=== PATIENT | female | born 1950 | race Caucasian/White ===

== ENCOUNTER 2016-11-23 21:09 | Emergency (ER) | payer MEDICARE ==
[~2016-11-23] VITALS: Ht 162.6 cm; Wt 113.4 kg
[~2016-11-23 21:09] MED LIST: HYDR-971 PO; OM-31CAP7 PO; ONDA4TAB10 PO; [UNRECOGNIZED DRUG - OTHER] PO
[2016-11-23 21:15] VITALS: BP 152/60
[2016-11-23] MEDS ORDERED: 0.9 % SODIUM CHLORIDE 10 ML DISP.SYRIN. IV PRN (21:30)
[2016-11-23] MEDS ORDERED: fentaNYL PF 100 MCG/2 ML VIAL IV PRN (21:30)
[2016-11-23] MEDS ORDERED: ONDANSETRON PF 4 MG/2 ML VIAL. IV ONE (22:00)
[2016-11-23] MEDS ORDERED: IV NORMAL SALINE 1,000ML 1,000 ML IV SCH (22:00)
[2016-11-23] MEDS ORDERED: DIAZ5TAB PO (22:15)
[2016-11-23] MEDS ORDERED: HYDR-2758 PO (22:15)
--- NOTE | 2016-11-23 22:15 | PHYS DOC ---
Past History Past Medical History: No Pertinent History Past Surgical History: Appendectomy, Cholecystectomy, Hysterectomy Alcohol Use: Rarely Drug Use: None Adult General Chief Complaint Chief Complaint: HIP PAIN HPI HPI Patient is a pleasant 66-year-old female with no major medical problems who is in the shower last week when she was washing her feet and attempted to Hyperflex at her hip when she felt a sharp pain relief from the top of her thigh to her lateral hip. On the left she's been able to walk although it hurts. She describes pain as a dull aching is worse with movement and flexion of the hip better with rest and immobilization. She denies any UTI symptoms, denies abdominal pain, denies any vaginal bleeding or discharge. She denies any back pain, numbness and tingling to the leg itself, denies any direct trauma. She was seen by an orthopedic surgeon PA earlier in the week provided Naprosyn which did not really improve symptoms. Patient denies any prior history of fall. She denies any abdominal pain, vomiting, diarrhea or night sweats or fevers. Review of Systems Review of Systems Constitutional: Denies fever or chills [] Eyes: Denies change in visual acuity, redness, or eye pain [] HENT: Denies nasal congestion or sore throat [] Respiratory: Denies cough or shortness of breath [] Cardiovascular: No additional information not addressed in HPI [] GI: Denies abdominal pain, nausea, vomiting, bloody stools or diarrhea [] : Denies dysuria or hematuria [] Musculoskeletal: Her only complaint is left hip pain Integument: Denies rash or skin lesions [] Neurologic: Denies headache, focal weakness or sensory changes [] Endocrine: Denies polyuria or polydipsia [] Current Medications Current Medications Current Medications Medications (Trade) Dose Ordered Sig/Ronald Start Time Stop Time Status Last Admin Dose Admin Fentanyl Citrate (Fentanyl 2ml Vial) 25 mcg PRN Q15MIN PRN 11/23/16 21:30 11/23/16 21:34 DC Ondansetron HCl (Zofran) 4 mg 1X ONCE 11/23/16 22:00 11/23/16 22:00 DC Sodium Chloride (Normal Saline Flush) 10 ml QSHIFT PRN 11/23/16 21:30 11/23/16 21:34 DC Allergies Allergies Allergies Coded Allergies Type Severity Reaction Last Updated Verified Sulfa (Sulfonamide Antibiotics) Allergy Unknown 07/13/14 Yes Physical Exam Physical Exam Pulse is 59 blood pressures 122/80 saturation 98% on room air. He is afebrile Constitutional: Well developed, well nourished, no acute distress, non-toxic appearance. [] Cardiovascular:Heart rate regular rhythm, no murmur [] Lungs & Thorax: Bilateral breath sounds clear to auscultation [] Abdomen: Bowel sounds normal, soft, no tenderness, no masses, no pulsatile masses. [] Skin: Warm, dry, no erythema, no rash. [] Extremities: Patient is tenderness to palpation over the lateral aspect of the hip and over the center is muscle. She also has some mild tenderness to palpation over the vastis lateralis muscle there is no. In changes. Patient has brisk capillary refill +2 over the skin of the leg entirely patient has brisk peripheral pulses at the dorsalis pedis, posterior tibialis and popliteal arteries. Neurologic: Alert and oriented X 3, normal motor function, normal sensory function, no focal deficits noted. [] Psychologic: Affect normal, judgement normal, mood normal. [] Current Patient Data Vital Signs Vital Signs Date Time Temp Pulse Resp B/P (MAP) Pulse Ox O2 Delivery O2 Flow Rate FiO2 11/23/16 21:15 98.3 66 20 96 Room Air EKG EKG [] Radiology/Procedures Radiology/Procedures [] Course & Med Decision Making Course & Med Decision Making Pertinent Labs and Imaging studies reviewed. (See chart for details) 3 view hip films on the left from 9:46 PM 11/23/2016 demonstrates no fracture normal joint alignment normal arnold's lines. That on top of the fact that she has decent range of motion with easily reproducible pain over this occurs muscle and muscle bellies of the thigh I believe this is associated with a muscle strain secondary to hyperflexion at the hip. Impression: sartorius muscle sprain hip sprain, Disposition: PCP follow-up to orthopedics referral provided Jerod Johnson. [] Christine Disclaimer Dragon Disclaimer This chart was dictated in whole or in part using Voice Recognition software in a busy, high-work load, and often noisy Emergency Department environment. It may contain unintended and wholly unrecognized errors or omissions. Departure Departure: Impression: Primary Impression: Sprain hip/thigh Additional Impression: Sprain of left hip Disposition: HOME, SELF-CARE Condition: IMPROVED Referrals: SOCORRO KING (PCP) Patient Instructions: Hip Exercises, Generic, SportsMed, Hip Injury, Hip Pain, Muscle Strain Additional Instructions: Please return for any new or increasing pain focal new neurologic deficits or weakness in the leg or if you have any questions or concerns. I would advise that you follow-up with your orthopedic surgeon as planned to continue to monitor and evaluate the source of pain in her hip. Scripts Diazepam (VALIUM) 5 Mg Tablet 5 MG PO TID for 5 Days, #15 TAB Please use one tablet every 8 hours as needed for muscle spasms. Do not drink alcohol or use other narcotics with this medication. Prov: RORO JURADO MD 11/23/16 Hydrocodone Bit/Acetaminophen (HYDROCODONE-APAP 5-325 ) 1 Each Tablet 1 TAB PO PRN Q6HRS Y for PAIN for 5 Days, #12 TAB 0 Refills Prov: RORO JURADO MD 11/23/16 Problem Qualifiers RORO JURADO MD Nov 23, 2016 22:15
[2016-11-23] MEDS ORDERED: HYDROcodone/APAP 5/325MG 1 TAB TABLET PO ONE (22:30)
[2016-11-23] MEDS ORDERED: diazePAM 5 MG TABLET PO ONE (22:30)
--- NOTE | 2016-11-24 08:40 | RAD ---
Examination: 2 views of the left hip with the frontal view of the pelvis History: History of left hip pain after twisting Comparison: None available Findings: The bilateral femoral heads are within the acetabula. Moderate degenerative changes identified in the bilateral hip joints. There is no acute fracture or dislocation identified in the left hip region. Impression: No acute osseous findings.
== END 2016-11-23 22:24 | disposition home or self-care (01) ==
LOC: ER 21:09
DX: S73.192A Other sprain of left hip, initial encounter (principal); Z88.2 Allergy status to sulfonamides; X50.9XXA Other and unspecified overexertion or strenuous movements or postures, initial encounter; Y93.E8 Activity, other personal hygiene; Y99.8 Other external cause status; Y92.89 Other specified places as the place of occurrence of the external cause
CPT/HCPCS: 73502; 99284

== ENCOUNTER → 2017-06-10 | Outpatient (CLI) | payer MEDICARE ==
[~2017-06-10] MED LIST changes: +DIAZ5TAB PO; +HYDR-2758 PO
--- NOTE | 2017-06-10 15:52 | RAD ---
Single view chest and right rib series 06/10/2017 Clinical indication: Right rib pain for several months. Comparison: CTA chest 02/13/2016, 2 view chest 02/02/2016 and 01/30/2016. Findings: Cardiac and mediastinal silhouettes are unremarkable. There are patchy peripheral right basilar opacities and probable small right pleural effusion. No evidence of acute displaced right rib fracture deformity. No pneumothorax. Impression: 1. Mild patchy right basilar opacities and probable trace right pleural effusion. Findings may represent pneumonia with a parapneumonic effusion. Peripheral location can be seen with a pulmonary infarct from underlying pulmonary embolism. Clinical correlation is recommended. Follow-up 2 view chest radiograph is recommended to assess for resolution. 2. No evidence of acute displaced right rib fracture deformity.
== END | disposition home or self-care (01) ==
LOC: PMG 10:58
PROVIDERS: ATTEND Physician Assistant
DX: R07.81 Pleurodynia (principal); R91.8 Other nonspecific abnormal finding of lung field
CPT/HCPCS: 71101

== ENCOUNTER → 2017-06-17 | Outpatient (CLI) | payer MEDICARE ==
--- NOTE | 2017-06-17 16:14 | RAD ---
Chest CT without contrast Clinical indications: Right-sided chest wall pain since gastric sleeve surgery in February 2017. Comparison: February 13, 2016. Technique: Noncontrast helical CT scanning of the chest was performed. Without contrast, the sensitivity to detect organ pathology is decreased. PQRS Compliance Statement: One or more of the following individualized dose reduction techniques were utilized for this examination: 1. Automated exposure control 2. Adjustment of the mA and/or kV according to patient size 3. Use of iterative reconstruction technique Findings: No enlarged thoracic lymphadenopathy is seen. The heart size is normal and no pericardial effusion is seen. There is a 1.5 cm hypodense nodule of the right lobe of the thyroid gland. No focal aneurysmal dilatation of the thoracic aorta is seen. A small hiatal hernia is evident. Small right-sided pleural effusion is seen. There is associated mild atelectasis of the right lower lobe. There is some mild honeycombing of the periphery of the right lower lobe and the right middle lobe and the left lower lobe and the inferior segment of the lingula consistent with mild interstitial pulmonary fibrosis with a lower lung zone predominance. Multiple tiny noncalcified lung nodules are seen bilaterally.. These were seen previously and are unchanged consistent with granulomas. No enlarging lung mass is seen. No pneumothorax is evident. The proximal bronchial tree is patent. No adrenal mass is evident. A hemangioma of T10 is seen. No osteolytic process is evident. No adrenal mass is seen. IMPRESSION: New finding of a small right-sided pleural effusion. There is adjacent atelectasis. No lung consolidation with air bronchograms is seen. Stable small bilateral lung nodules consistent with granulomas. No significant progression in mild interstitial pulmonary fibrosis with lower lung zone predominance. Small hypodense nodule of the right lobe of the thyroid gland. Recommend thyroid sonography for further evaluation. Small hiatal hernia.
== END | disposition home or self-care (01) ==
LOC: CT 12:58
PROVIDERS: ATTEND Physician Assistant
DX: J90 Pleural effusion, not elsewhere classified (principal); J98.11 Atelectasis; K44.9 Diaphragmatic hernia without obstruction or gangrene
CPT/HCPCS: 71250

== ENCOUNTER → 2018-03-27 | Outpatient (CLI) | payer MEDICARE ==
--- NOTE | 2018-03-27 09:32 | RAD ---
Examination: CT chest without contrast HISTORY: History of right-sided pleural effusion, chest pain COMPARISON: 06/17/2017 TECHNIQUE: Axial CT images of the chest were performed without contrast. Coronal and sagittal reformats are performed Exposure: One or more of the following individualized dose reduction techniques were utilized for this examination: 1. Automated exposure control 2. Adjustment of the mA and/or kV according to patient size 3. Use of iterative reconstruction technique FINDINGS: There is a 1.3 cm hypodensity identified in the right lobe of thyroid gland probably a thyroid nodule. The central airways are patent. The ascending aorta measures 3.2 cm in transverse dimension. The heart size grossly appears unremarkable. Small hiatal hernia is identified. No evidence of pleural effusion identified. There are scattered multiple nodules identified in the bilateral lungs the largest measuring 5 mm in the right upper lobe similar to prior exam. Minimal prominent bilateral interstitial lung markings identified in the periphery of the lungs. No evidence of traction bronchiectasis identified. The visualized noncontrasted liver, spleen, adrenals grossly appears unremarkable. Surgical changes identified in the stomach. A hemangioma identified in the T10 vertebral body similar to prior exam. Moderate degenerative changes thoracic spine. IMPRESSION: 1. No evidence of pleural effusion. 2. Mild prominent interstitial lung markings identified in the bibasilar lungs, nonspecific could be mild fibrosis. 3. Scattered multiple noncalcified nodules identified in the bilateral lungs with the largest measuring 5 mm similar to prior exam. 4. A 1.3 cm hypodensity identified in the thyroid gland. If this was not worked up earlier recommend ultrasound thyroid gland. Electronically signed by: Hardeep Miller MD (03/27/2018 9:29 AM) [place] [id number]
--- NOTE | 2018-03-27 12:32 | RAD ---
Thyroid ultrasound, 03/27/2018: HISTORY: Thyroid nodule seen on CT exam The right lobe of the gland measures 5.1 x 1.6 x 2.0 cm while the left lobe of the gland measures 4.4 x 1.5 x 1.4 cm. There are multiple bilateral thyroid nodules. The largest nodule lies in the mid right lobe and measures 1.9 x 1.4 x 1.0 cm. Its margins are smooth with a hypoechoic rim. This is a solid mass with mildly heterogeneous internal echoes. No calcifications are seen. It is wider than tall. There are numerous other small subcentimeter cystic and solid nodules in both lobes. These include a 9 mm solid nodule at the junction of the right lobe and isthmus. It demonstrates sonographic characteristics similar to the above-described dominant nodule. The largest nodule in the left lobe measures 7 mm. IMPRESSION: Multinodular thyroid gland. The sonographic characteristics of these nodules are nonspecific. Ultrasound-guided biopsy of the dominant solid nodule in the right lobe of the gland may be considered for further evaluation, versus sonographic surveillance. Electronically signed by: Yaniv Crandall MD (03/27/2018 12:28 PM) [facility]
--- NOTE | 2018-03-31 15:52 | RAD ---
DATE: 03/27/2018 EXAM: MAMMO [facility]IL[facility] SCREENING BILATERAL HISTORY: Routine screening COMPARISON: None available This study was interpreted with the benefit of Computerized Aided Detection (CAD). Breast Density: SCATTERED The breast parenchyma shows scattered fibroglandular densities. Breast parenchyma level B. FINDINGS: Minimal benign calcification is present. No masses or distortion. No suspicious calcification clusters. IMPRESSION: Normal BI-RADS CATEGORY: 2 BENIGN FINDING(S) RECOMMENDED FOLLOW-UP: 12M 12 MONTH FOLLOW-UP PQRS compliance statement: Patient information was entered into a reminder system with a target due date in 1 year for the next mammogram. Mammography is a sensitive method for finding small breast cancers, but it does not detect them all and is not a substitute for careful clinical examination. A negative mammogram does not negate a clinically suspicious finding and should not result in delay in biopsying a clinically suspicious abnormality. "Our facility is accredited by the [employer] Mammography Program."
== END | disposition home or self-care (01) ==
LOC: CT 08:50
PROVIDERS: ATTEND Physician Assistant
DX: Z12.31 Encounter for screening mammogram for malignant neoplasm of breast (principal); J90 Pleural effusion, not elsewhere classified; E04.2 Nontoxic multinodular goiter; K44.9 Diaphragmatic hernia without obstruction or gangrene; R91.8 Other nonspecific abnormal finding of lung field
CPT/HCPCS: 71250; 76536; 77063; 77067

== ENCOUNTER → 2019-04-06 | Outpatient (CLI) | payer MEDICARE, OTHER ==
[~2019-04-06] MED LIST changes: +HYDR-2155 PO; -HYDR-2758 PO; +HYDR-3165 PO; -HYDR-971 PO
--- NOTE | 2019-04-06 13:33 | RAD ---
EXAM: Left knee, 2 views; right hand, 2 views. HISTORY: Pain. COMPARISON: None. FINDINGS: Left knee: 2 views of the left knee are obtained. There is mild medial compartment predominant tricompartmental spurring. There is a small joint effusion. There is no fracture, dislocation or subluxation. Right hand: 2 views the right hand are obtained. There is no fracture, dislocation or subluxation. IMPRESSION: 1. No acute osseous finding. 2. 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 Electronically signed by: Norah Bello MD (04/06/2019 1:31 PM) [facility]
== END | disposition home or self-care (01) ==
LOC: PMG 11:45
PROVIDERS: ATTEND Physician Assistant
DX: M17.12 Unilateral primary osteoarthritis, left knee (principal); M25.462 Effusion, left knee; M79.641 Pain in right hand
CPT/HCPCS: 73120; 73560

== ENCOUNTER 2019-04-07 17:06 | Emergency (ER) | payer MEDICARE, OTHER ==
[~2019-04-07] VITALS: Ht 162.6 cm; Wt 87.0 kg
[2019-04-07] MEDS ORDERED: NEOMY/BACITR/POLYMYXIN OINT PACKET. TP ONE ×2 (17:13→17:15)
[2019-04-07] MEDS ORDERED: LIDOCAINE 2%/EPI 1:100,000 20 ML VIAL. ONE (17:13)
[2019-04-07] MEDS ORDERED: LIDOCAINE 2%/EPI 1:100,000 20 ML VIAL. IJ ONE (17:30)
--- NOTE | 2019-04-07 17:30 | PHYS DOC ---
Past History Past Medical History: No Pertinent History Past Surgical History: Appendectomy, Cholecystectomy, Hysterectomy Smoking: Non-smoker Alcohol Use: Rarely Drug Use: None Adult General Chief Complaint Chief Complaint: LACERATION/AVULSION HPI HPI Pt is a 68 y/o female who presents to the ED with a laceration on right 4th finger after pulling out her drawer and cutting it on the metal side at around 1200 today. She is unsure of when her last tetanus shot was. Pt reports that it was hard to get it to stop bleeding. Review of Systems Review of Systems Constitutional: Denies fever or chills Respiratory: Denies cough or shortness of breath Cardiovascular: Denies chest pain or palpitations GI: Denies abdominal pain, nausea, or vomiting Musculoskeletal: Denies back pain or joint pain Integument: Reports skin laceration on right 4th finger Neurologic: Denies headache, focal weakness or sensory changes Complete systems were reviewed and found to be within normal limits, except as documented in this note. Current Medications Current Medications Current Medications Medications (Trade) Dose Ordered Sig/Ronald Start Time Stop Time Status Last Admin Dose Admin Lidocaine/ Epinephrine (Xylocaine 2%-Epi 1:100,000) 20 ml 1X ONCE 04/07/19 17:30 04/07/19 17:31 Neomycin/ Polymyxin/ Bacitracin (Triple Antibiotic Ointment) 1 pkt 1X ONCE 04/07/19 17:15 04/07/19 17:16 DC Allergies Allergies Allergies Coded Allergies Type Severity Reaction Last Updated Verified Sulfa (Sulfonamide Antibiotics) Allergy Intermediate 11/23/16 Yes Physical Exam Physical Exam Constitutional: Well developed, well nourished, no acute distress, non-toxic appearance HENT: Normocephalic, atraumatic, oropharynx moist Eyes: PERRL, EOMI, conjunctiva normal, no discharge Neck: Normal range of motion, no tenderness, supple Cardiovascular: Heart rate normal, regular rhythm Lungs & Thorax: Bilateral breath sounds clear to auscultation, no wheezing Abdomen: Soft, no tenderness Skin: 2 cm skin laceration on left ring finger without exudate or drainage Back: No tenderness, no CVA tenderness Extremities: No tenderness, ROM intact, no edema Neurologic: Alert and oriented X 3, normal motor function, normal sensory function, no focal deficits noted Psychologic: Affect normal, judgement normal, mood normal EKG EKG [] Radiology/Procedures Radiology/Procedures [] Course & Med Decision Making Course & Med Decision Making Pt is a 68 y/o female who presents with laceration of her right 4th finger. 5 x simple interrupted 5-0 sutures were used to close the laceration. Tetanus booster was also administered. Dragon Disclaimer Dragon Disclaimer This electronic medical record was generated, in whole or in part, using a voice recognition dictation system. Laceration/Wound Repair Laceration/Wound Repair : Wound Location: upper extremity (left palmar ring finger) Wound's Depth, Shape: linear Wound Length (cm): 2 Wound Explored: clean Irrigated w/ Saline (ccs): 200 Anesthesia: Lidocaine w/ Epi (2%) Volume Anesthetic (ccs): 3 Wound Debrided: minimal Wound Repaired With: sutures Suture Size/Type: 5:0, nylon Number of Sutures: 5 Sterile Dressing Applied?: Yes Progress Verbal consent obtained. Time out performed. Hand hygiene utilized. Wound cleaned with ChloraPrep. Anesthesia obtained via a 25-gauge hypodermic needle via 4 nerve digit finger block with (3) mL's of lidocaine 2% with epinephrine. Copious irrigation performed. Wound well approximated with 5-0 Nylon simple interrupted sutures x 5. Patient tolerated procedure well and without difficulty. Empiric antibiotic ointment applied prior to sterile dressing. Departure Departure: Impression: Primary Impression: Finger laceration Disposition: 01 HOME, SELF-CARE Condition: STABLE Referrals: SOCORRO KING (PCP) Patient Instructions: Sutured Wound Care, [id number] Additional Instructions: Do not soak your wound. You may shower. Clean wound daily with soap and water. Change dressing 2 times daily. Use over the counter antibiotic ointment with each dressing change. Sutures need to be removed in 7-10 days. Present to your family doctor or local urgent care for removal. You may also present to the ED but it will be an additional visit/charge. After suture removal you may use Vitamin E ointment to soften the wound and prevent scarring. Problem Qualifiers Primary Impression: Finger laceration Encounter type: initial encounter Finger: ring finger Damage to nail status: without damage Foreign body presence: without foreign body Laterality: right Qualified Codes: S61.214A - Laceration without foreign body of right ring finger without damage to nail, initial encounter SHARRON DURHAM DO Apr 07, 2019 17:29
[2019-04-07 17:46] VITALS: BP 143/54
[2019-04-07] MEDS ORDERED: DIPHTH,PERTUSS(ACELL),TET TOX 0.5 ML DISP.SYRIN. VAX IM ONE (18:00)
== END 2019-04-07 18:26 | disposition home or self-care (01) ==
LOC: ER 17:06
DX: S61.214A Laceration without foreign body of right ring finger without damage to nail, initial encounter (principal); Z88.2 Allergy status to sulfonamides; W26.8XXA Contact with other sharp object(s), not elsewhere classified, initial encounter; Y93.89 Activity, other specified; Y92.89 Other specified places as the place of occurrence of the external cause; Y99.8 Other external cause status
CPT/HCPCS: 12001; 90471; 90715; 99283

== ENCOUNTER 2019-04-19 10:12 | Emergency (ER) | payer OTHER ==
[~2019-04-19] VITALS: Ht 162.6 cm; Wt 83.9 kg
[2019-04-19 10:15] VITALS: BP 155/63
--- NOTE | 2019-04-19 10:25 | PHYS DOC ---
Past History Past Medical History: No Pertinent History Past Surgical History: No Surgical History Smoking: Non-smoker Alcohol Use: None Drug Use: None Adult General HPI HPI Patient presents to the emergency department for suture removal, she had 5 sutures placed on her right ring finger placed about 10 days ago, the wound has been healing well, she has no complaints. Her tetanus is up-to-date. Review of Systems Review of Systems Constitutional: Denies fever or chills [] Neurologic: Denies sensory changes [] Allergies Allergies Allergies Coded Allergies Type Severity Reaction Last Updated Verified Sulfa (Sulfonamide Antibiotics) Allergy Intermediate 11/23/16 Yes Physical Exam Physical Exam PHYSICAL EXAM: HEENT: Atruamatic NECK: Supple, normal ROM, non-tender. CARDIAC: Regular Rate and Rhythm LUNGS: Clear Bilaterally EXTREMITIES: There is a laceration, healed, on the right ring finger, distal aspect of the pad of the digit, which appears well-healed. EKG EKG [] Radiology/Procedures Radiology/Procedures [] Course & Med Decision Making Course & Med Decision Making Discussed wound care with the patient and the need for follow-up. 5 sutures will be removed by ER nursing staff. Dragon Disclaimer Dragon Disclaimer This electronic medical record was generated, in whole or in part, using a voice recognition dictation system. Departure Departure: Impression: Primary Impression: Visit for suture removal Disposition: 01 HOME, SELF-CARE Condition: STABLE Referrals: SOCORRO KING (PCP) Patient Instructions: Suture Removal RICHARD KAUFFMAN MD Apr 19, 2019 10:25
== END 2019-04-19 10:50 | disposition home or self-care (01) ==
LOC: ER 10:12
DX: S61.214D Laceration without foreign body of right ring finger without damage to nail, subsequent encounter (principal); Z88.2 Allergy status to sulfonamides; X58.XXXD Exposure to other specified factors, subsequent encounter
CPT/HCPCS: 99281

== ENCOUNTER → 2019-04-19 | Outpatient (CLI) | payer OTHER ==
[2019-04-07 17:46] VITALS: BP 143/54
--- NOTE | 2019-04-19 14:35 | RAD ---
Thyroid ultrasound Clinical indications: Thyroid nodules Comparison: March 27, 2018. FINDINGS: The longitudinal AP and transverse dimensions of the right lobe are 5.4 cm and 2.1 cm and 2.0 cm respectively. Multiple nodules of the right lobe are again seen. The largest is completely solid without calcifications and is heterogeneous in appearance. It measures 19 mm x 13 mm x 17 mm in size. On the previous study, it measured 19 mm x 12 mm x 14 mm. Therefore, there has been no significant increase in size. Small nodule of the upper pole of the right lobe measures 5 mm in size and is cystic and is unchanged. There is a small cyst of the mid aspect of the right lobe. There is a solid isoechoic nodule within the lower pole measuring 10 mm. This is located medially. When similar retrospective measurements are made, there is no significant change. On the left side, the longitudinal AP and transverse dimensions are 4.2 cm and 1.2 cm and 1.5 cm respectively. There is a small complex hypoechoic nodule within the upper pole measuring 6 mm. This measured 7 mm previously and therefore is unchanged. There is a cyst of the inferior pole measuring 8 mm which is unchanged. There are cystic nodules within the isthmus. Largest is seen on the left side measuring 6 mm. This is unchanged. Isthmus measures 6 mm in thickness. IMPRESSION: No definite change in thyroid nodules. The largest is seen within the mid aspect of the right lobe measuring 19 mm. It is unchanged. Recommend continued sonographic follow-up in one year. Electronically signed by: Weston Batista MD (04/19/2019 2:33 PM) [facility]
--- NOTE | 2019-04-20 14:43 | RAD ---
DATE: April 20, 2020 EXAM: MAMMO [facility]ILFREDO SCREENING BILATERAL HISTORY: Screening study. COMPARISON: 2018 This study was interpreted with the benefit of Computerized Aided Detection (CAD). 2-D digital mammographic views of both breasts were performed in the CC and MLO projections. 3-D digital tomosynthesis images of both breasts were performed in the CC and MLO projections and reviewed on a computer workstation. FINDINGS: Breast Density: SCATTERED The breast parenchyma shows scattered fibroglandular densities. Breast parenchyma level B.. There are no dominant suspicious masses, suspicious microcalcifications or evidence of architectural distortion. IMPRESSION: No mammographic indicators for malignancy. BI-RADS CATEGORY: 1 NEGATIVE RECOMMENDED FOLLOW-UP: 12M 12 MONTH FOLLOW-UP PQRS compliance statement: Patient information was entered into a reminder system with a target due date April 20, 2020 for the next mammogram. Mammography is a sensitive method for finding small breast cancers, but it does not detect them all and is not a substitute for careful clinical examination. A negative mammogram does not negate a clinically suspicious finding and should not result in delay in biopsying a clinically suspicious abnormality. "Our facility is accredited by the [employer] Mammography Program." The patient's breast density may affect the ability of mammography to detect breast cancer. There are 4 categories of breast density, A, B, C and D. Breast density A means that most of the breast tissue is replaced with adipose tissue and therefore is not dense. Breast density B means that the breast tissue is mildly dense and scattered. Breast density C means that the breast tissue is heterogeneously dense. Breast density D means that the breast tissue is very dense. Breast densities especially C and D may decrease the sensitivity of mammography to detect breast cancer. Therefore, the patient may benefit from 3-D breast mammography (3D breast tomography) as a part of their screening mammogram. Insurance may or may not pay for this additional imaging. The patient's breast density based on today's mammogram is category B.
== END | disposition home or self-care (01) ==
LOC: US 09:14
PROVIDERS: ATTEND Physician Assistant
DX: Z12.31 Encounter for screening mammogram for malignant neoplasm of breast (principal); E04.2 Nontoxic multinodular goiter
CPT/HCPCS: 76536; 77063; 77067

== ENCOUNTER 2021-04-22 15:14 | Emergency (ER) | payer MEDICARE, OTHER ==
[~2021-04-22] VITALS: Ht 162.6 cm; Wt 90.9 kg
[2021-04-22 15:46] VITALS: BP 155/81
--- NOTE | 2021-04-22 15:46 | PHYS DOC ---
Past History Past Medical History: No Pertinent History Past Surgical History: No Surgical History Smoking: Non-smoker Alcohol Use: None Drug Use: None General Adult EDM: Chief Complaint: KNEE INJURY HPI: HPI: patient is a 70-year-old female that presents today with left knee pain. Patient states her pain started yesterday, she does not recall any trauma or injury. Patient states the reason she is here today and not following up with her primary care in the a.m. as she is leaving tomorrow at 7:30 in the AM to go out of town, she is supposed to go to [place] to be with family. Review of Systems: Review of Systems: Constitutional: Denies fever or chills Eyes: Denies change in visual acuity HENT: Denies nasal congestion or sore throat Respiratory: Denies cough or shortness of breath Cardiovascular: Denies chest pain or edema GI: Denies abdominal pain, nausea, vomiting, bloody stools or diarrhea : Denies dysuria Musculoskeletal: Left knee pain Integument: Denies rash Neurologic: Denies headache, focal weakness or sensory changes Endocrine: Denies polyuria or polydipsia Lymphatic: Denies swollen glands Psychiatric: Denies depression or anxiety Allergies: Allergies: Allergies Coded Allergies Type Severity Reaction Last Updated Verified Sulfa (Sulfonamide Antibiotics) Allergy Intermediate 11/23/16 Yes Physical Exam: PE: Constitutional: Well developed, well nourished, no acute distress, non-toxic appearance. [] HENT: Normocephalic, atraumatic, bilateral external ears normal, oropharynx moist, no oral exudates, nose normal. [] Eyes: PERRLA, EOMI, conjunctiva normal, no discharge. [] Neck: Normal range of motion, no tenderness, supple, no stridor. [] Cardiovascular:Heart rate regular rhythm, no murmur [] Lungs & Thorax: Bilateral breath sounds clear to auscultation [] Abdomen: Bowel sounds normal, soft, no tenderness, no masses, no pulsatile masses. [] Skin: Warm, dry, no erythema, no rash. [] Back: No tenderness, no CVA tenderness. [] Extremities: Left knee noted with trace amounts of swelling pain noted below the patella on the medial portion of the joint, no redness warmth noted, stability of the knee is within normal limits, dorsalis pedis pulse 2+ vascular intact distal to the pain Neurologic: Alert and oriented X 3, normal motor function, normal sensory function, no focal deficits noted. [] Psychologic: Affect normal, judgement normal, mood normal. [] Current Patient Data: Vital Signs: Vital Signs Date Time Temp Pulse Resp B/P (MAP) Pulse Ox O2 Delivery O2 Flow Rate FiO2 04/22/21 15:46 66 18 155/81 (105) 97 EKG: EKG: [] Radiology/Procedures: Radiology/Procedures: REASON: knee pain PROCEDURE: KNEE LEFT 4V XR KNEE _4 VIEWS WITH PATELLA_LT History: Reason: knee pain / Spl. Instructions: / History: Technique: 3 views left knee Comparison: None. Findings: No dislocation. No acute fracture. Mild knee degenerative changes most prominent within the medial and patellofemoral compartments. No significant knee joint effusion. Impression: 1. No acute osseous abnormality. 2. Mild left knee DJD. Electronically signed by: Forrest Boyer DO (04/22/2021 4:10 PM) [facility] [] Heart Score: C/O Chest Pain: N/A Risk Factors: Risk Factors: DM, Current or recent (<one month) smoker, HTN, HLP, family history of CAD, obesity. Risk Scores: Score 0 - 3: 2.5% MACE over next 6 weeks - Discharge Home Score 4 - 6: 20.3% MACE over next 6 weeks - Admit for Clinical Observation Score 7 - 10: 72.7% MACE over next 6 weeks - Early Invasive Strategies Course & Med Decision Making: Course & Med Decision Making Pertinent Labs and Imaging studies reviewed. (See chart for details) [id number] spoke to patient regarding radiology results, informed patient that she has degenerative joint changes but no acute processes are concerning at this time. Informed patient to get a knee brace immobilizer at [facility] or [facility] to help with support, and follow-up with her primary care physician for further management of her knee pain. We will give patient some hydrocodone to help her rest in the evenings patient is agreeable to the plan of care and verbalizes understanding Christine Disclaimer: Christine Disclaimer: This electronic medical record was generated, in whole or in part, using a voice recognition dictation system. Departure Departure: Impression: Primary Impression: Knee pain, left Qualified Codes: M25.562 - Pain in left knee Disposition: HOME / SELF CARE / HOMELESS Condition: STABLE Referrals: SOCORRO KING (PCP) Patient Instructions: Knee Pain, RICE - Routine Care for Injuries Additional Instructions: Ice 20 minutes on 3-4 times daily as needed for pain and swelling [id number] Aleve or Tylenol for mild to moderate pain, hydrocodone for moderate to severe pain, do not drive or operate heavy machinery while taking hydrocodone Use knee sleeve that you can find at [facility] or [facility] to help with knee support Follow-up with your primary care physician in the next 5 to 7 days if no better Scripts Hydrocodone Bit/Acetaminophen (HYDROCODONE-APAP 5-325 ) 1 Each Tablet 1 TAB PO PRN Q6HRS PRN for PAIN, #14 TAB 0 Refills Prov: MATTHEW REES APRN 04/22/21 MATTHEW REES APRN Apr 22, 2021 15:46
--- NOTE | 2021-04-22 16:13 | RAD ---
XR KNEE _4 VIEWS WITH PATELLA_LT History: Reason: knee pain / Spl. Instructions: / History: Technique: 3 views left knee Comparison: None. Findings: No dislocation. No acute fracture. Mild knee degenerative changes most prominent within the medial an d patellofemoral compartments. No significant knee joint effusion. Impression: 1. No acute osseous abnormality. 2. Mild left knee DJD. Electronically signed by: Forrest Boyer DO (04/22/2021 4:10 PM) [facility]
[2021-04-22] MEDS ORDERED: HYDR-2155 PO (16:39)
== END 2021-04-22 16:44 | disposition home or self-care (01) ==
LOC: ER 15:14
DX: M25.562 Pain in left knee (principal); R22.42 Localized swelling, mass and lump, left lower limb; Z88.2 Allergy status to sulfonamides
CPT/HCPCS: 73564; 99283